=== PATIENT | female | born 1990 | race Caucasian/White ===

== ENCOUNTER 2020-03-03 08:40 | Inpatient (IN) | payer OTHER ==
[2020-03-03] MEDS ORDERED: CARBOPROST TROMETHAMINE 250 MCG/ML 1 ML AMP IM PRN (09:14)
[2020-03-03] MEDS ORDERED: METHYLERGONOVINE 0.2 MG/ML 1 ML AMP IM PRN (09:14)
[2020-03-03] MEDS ORDERED: TERBUTALINE 1 MG/ML VIAL SQ PRN (09:14)
[2020-03-03] MEDS ORDERED: LIDOCAINE 0.5% (PF) 5 MG/ML (50 ML SDV) SQ PRN (09:14)
[2020-03-03] MEDS ORDERED: OXYTOCIN 10 UNIT/ML 1 ML VIAL IM PRN (09:14)
[2020-03-03] MEDS ORDERED: AMPICILLIN 2,000 MG in SODIUM CHLORIDE 0.9% 100 ML IVPB STA (09:19)
[2020-03-03] MEDS ORDERED: OXYTOCIN 30 UNITS/500 ML NS 30 UNIT in SALINE 1 500ML.BAG IV SCH (09:30)
[2020-03-03] MEDS: LACTATED RINGERS 1,000 ML IV SCH ×2 (10:20→12:09)
[2020-03-03 10:51] LABS: Basophils % (A) 0 %; Eosinophils # (A) 0.1 k/uL (0-0.7); Eosinophils % (A) 1 %; HCT 37.7 % (34.0-46.0); HGB 12.9 gm/dL (11.4-16.0); Lymphocytes % (A) 21 %; MCH 31.5 pg (25.0-35.0); MCHC 34.3 g/dL (31.0-37.0); MCV 91.9 fL (80.0-100.0); Mean Platelet Volume 9.1; Monocytes # (A) 0.5 k/uL (0-1.0); Monocytes % (A) 5 %; Neutrophils % (A) 71 %; Platelet Count 238 k/uL (150-450); RBC 4.11 m/uL (3.80-5.40); RDW 12.3 % (11.5-15.5); WBC 9.8 k/uL (3.8-10.6)
[2020-03-03] MEDS ORDERED: SODIUM CHLORIDE 0.9% 100 ML BAG ONE (11:50)
[2020-03-03] MEDS ORDERED: fentaNYL (PF) 50 MCG/ML 5 ML AMP ONE (11:50)
[2020-03-03] MEDS ORDERED: ROPIVACAINE 5MG/ML 20ML VIAL ONE (11:50)
--- NOTE | 2020-03-03 12:10 | P.HPOB ---
History of Present Illness H&P Date: 03/03/20 Chief Complaint: Spontaneous rupture of membranes This is a 29-year-old female 1 para 0 with an estimated date of confinement of 03/22/2020, estimated gestational age of 37-2/7 weeks, who presented to labor and delivery with complaints of spontaneous rupture of membr anes at approximately 7 AM this morning. She denied feeling any regular contractions but did start to feel some on the way into the hospital. care has been with Dr. Vuong and has been uncomplicated up until this point. labs: Hemoglobin-11.8 Random glucose-91 Pap smear-within normal limits GC/chlamydia/Trichomonas-negative Hepatitis B surface antigen-negative RPR-nonreactive Rubella-immune Blood type-A+ Antibody screen-negative HIV-nonreactive Hemoglobin-12.2 Random glucose-82 Obstetrical ultrasound-normal anatomy One hour Glucola elevated at 144, 3 hour Glucola-within normal limits Group B streptococcus-initially was unknown however currently with review of records, it is negative Obstetrical history: Gynecologic history: No history of sexual transmitted diseases Review of Systems Constitutional: Denies chills, Denies fever Eyes: denies blurred vision, denies pain Ears, nose, mouth and throat: Denies headache, Denies sore throat Cardiovascular: Denies chest pain, Denies shortness of breath Respiratory: Denies cough Gastrointestinal: Reports abdominal pain (Irregular contractions) Genitourinary: Reports pelvic pain, Reports Musculoskeletal: Reports low back pain Integumentary: Denies pruritus, Denies rash Neurological: Denies numbness, Denies weakness Psychiatric: Denies anxiety, Denies depression Past Medical History Past Medical History: No Reported History History of Any Multi-Drug Resistant Organisms: None Reported Past Surgical History: No Surgical Hx Reported Past Anesthesia/Blood Transfusion Reactions: No Reported Reaction Past Psychological History: No Psychological Hx Reported Smoking Status: Never smoker Past Alcohol Use History: None Reported Past Drug Use History: None Reported - Past Family History Father Family Medical History: No Reported History Mother Family Medical History: Diabetes Mellitus Medications and Allergies Home Medications Medication Instructions Recorded Confirmed Type Pnv No.95/Ferrous Fum/Folic AC 1 tab PO DAILY 03/03/20 03/03/20 History [ Multivitamin Tablet] Allergies Allergy/AdvReac Type Severity Reaction Status Date / Time No Known Allergies Allergy Verified 03/03/20 09:03 Exam Osteopathic Statement: *. No significant issues noted on an osteopathic stru ctural exam other than those noted in the History and Physical/Consult. Vital Signs Temp Pulse Resp BP Pulse Ox 03/03/20 09:25 97.7 F 100 17 130/80 100 03/03/20 09:06 97.7 F 100 17 130/80 Intake and Output 03/02/20 03/03/20 03/03/20 22:59 06:59 14:59 Other: Weight 68.039 kg HEENT: Within normal limits Heart: Regular rate and rhythm Lungs: Clear to auscultation bilaterally Abdomen: Cervix: 2-1/2 cm/90%/-2 station. Positive clear fluid was noted. Positive amnisure was noted. heart tones: Category 1 Contractions: Every 2-5 minutes Extremities: Negative Homans Results Result Diagrams: 03/03/20 10:20 Assessment and Plan (1) 37 weeks gestation of Current Visit: Yes Status: Acute Code(s): Z3A.37 - 37 WEEKS GESTATION OF SNOMED Code(s): 85126380 (2) Spontaneous rupture of membranes Current Visit: Yes Status: Acute Code(s): LFZ3621 - SNOMED Code(s): 505206526 Plan: Admission for active labor. Expectant management. Epidural anesthesia if desired. One dose of antibiotic was given due to unknown group B streptococcus, however since we do know it is now negative, will discontinue.
[2020-03-03] MEDS ORDERED: AMPICILLIN 1,000 MG in SODIUM CHLORIDE 0.9% 50 ML IVPB SCH (13:20)
[2020-03-03] MEDS: OXYTOCIN 20 UNITS/1000 ML NS 1,000 ML IV SCH ×2 (17:29→18:17)
[2020-03-03] MEDS ORDERED: diphenhydrAMINE 50 MG/ML 1 ML VIAL IVP PRN ×2 (17:59)
[2020-03-03] MEDS ORDERED: SIMETHICONE 80 MG CHEWABLE PO PRN (17:59)
[2020-03-03] MEDS ORDERED: BENZOCAINE/MENTHOL SPRAY 1 GM/SPRAY AEROSOL TOPICAL PRN (17:59)
[2020-03-03] MEDS ORDERED: LANOLIN CREAM 5 GM TUBE TOPICAL PRN (17:59)
[2020-03-03] MEDS ORDERED: ACETAMINOPHEN TAB 325 MG TAB PO PRN (17:59)
[2020-03-03] MEDS ORDERED: diphenhydrAMINE 25 MG CAP PO PRN (17:59)
[2020-03-03] MEDS ORDERED: diphenhydrAMINE 50 MG CAP PO PRN (17:59)
[2020-03-03] MEDS ORDERED: ZOLPIDEM 5 MG TAB PO PRN (17:59)
[2020-03-03] MEDS ORDERED: HYDROCORTISONE 2.5% RECTAL CREAM 30 GM TUBE RECTAL PRN (17:59)
--- NOTE | 2020-03-03 18:00 | P.PROBDLV ---
Vaginal Delivery Note - . Vaginal Delivery Note: The patient progressed to complete dilation after spontaneous labor and spontaneous rupture membranes with clear fluid noted. She did receive epidural anesthesia. Once reaching complete, she began pushing. She pushed for approximately an hour and a half and brought 's head to a crown. With one further push, the 's head delivered across the perineum. Infant delivered in a straight OA position with shoulders in a transverse lie. Baby arrested tooted to a JUSTIN position and with one further push delivered the anterior or left shoulder underneath the pubic symphysis. With one remaining push, the remainder the infant easily delivered and was placed on mother's abdomen. Nose and mouth were bulb suctioned and cord was clamped and cut and was taken to warmer for evaluation. A viable female infant was noted with scores of 9 at 1 minute and 9 at 5 minutes and infant weight of 6 pounds 11.4 ounces. After some uterine massage, the placenta did gradually released along with some maternal pushing efforts. Placenta delivered intact with a three-vessel cord. Uterus initially did firm with uterine massage and oxytocin. However she Getting gushes of blood despite massaged and the uterine fundus. I did place a gloved hand into the intrauterine cavity to check for any membranes or pieces of placenta, however no additional pieces were palpated. The uterine cavity was palpated to be slightly ratty with irregular contour. After several attempts at removing blood clot and opening up the oxytocin, the uterus did finally firm. She also did have a second-degree left perineal laceration that was anesthetized with 1% lidocaine and then sutured with 3-0 Vicryl suture in the usual multilayer fashion. Estimated blood loss by quantitative blood loss was 820 mL's. We will continue oxytocin infusion and uterine massage and closely watch for any further blood loss. Both mother and are in stable condition.
[2020-03-03] MEDS ORDERED: INFLUENZA VACCINE (6 MOS+) 60 MCG/0.5 ML SYRINGE IM ONE (20:08)
[2020-03-03] MEDS: IBUPROFEN 600 MG TAB PO PRN (20:47)
[2020-03-03] MEDS: SENNOSIDES-DOCUSATE SODIUM 1 EACH TAB PO SCH (21:40)
[2020-03-04] MEDS: IBUPROFEN 600 MG TAB PO PRN ×2 (02:49→11:43)
--- NOTE | 2020-03-04 06:00 | P.PNOBGVD ---
Subjective - Subjective Patient reports: Reports appetite normal, Reports voiding normally, Reports pain well controlled, Reports ambulating normally : doing well Objective - Latest Vital Signs Latest vital signs: Vital Signs Temp Pulse Resp BP Pulse Ox 03/04/20 03:17 98.0 F 74 18 106/63 98 03/03/20 23:48 98.4 F 101 H 18 107/66 98 03/03/20 20:00 98.4 F 80 18 138/88 99 03/03/20 19:30 102 H 18 136/67 03/03/20 19:00 98 17 131/62 03/03/20 18:52 118 H 16 127/62 03/03/20 18:34 108 H 18 131/77 03/03/20 18:14 105 H 17 133/78 03/03/20 18:00 99.0 F 108 H 17 126/75 03/03/20 09:25 97.7 F 100 17 130/80 100 03/03/20 09:06 97.7 F 100 17 130/80 Intake and Output 03/03/20 03/03/20 03/04/20 14:59 22:59 06:59 Intake Total 100 600 Output Total 200 75 Balance -200 25 600 Intake: Intake, IV Titration 100 Amount Oxytocin 20 Units/1000 ml 100 Ns 1,000 ml @ Per Protocol IV .Q0M [facility] Rx#: [id number] Oral 600 Output: Urine 200 75 Other: # Voids 1 Weight 68.039 kg - Exam Lungs: bilateral: normal Chest: Normal S1, Normal S2 Extremities: Present: normal Abdomen: Present: normal appearance, soft Uterus: Present: normal, firm Assessment and Plan Assessment: day #1. Patient is resting without complaints and wishes to go home. Vital signs are stable and she is afebrile. Uterus is firm nontender and she's had normal lochia. My impression is a normal course. Check a CBC this morning that she had some excessive bleeding at the time of delivery but this is been very good sense. If the CBC is normal she continues to feel well discharge home later today. (1) Normal vaginal delivery Current Visit: Yes Status: Acute Code(s): O80 - ENCOUNTER FOR FULL-TERM UNCOMPLICATED DELIVERY SNOMED Code(s): 02796429
--- NOTE | 2020-03-04 06:03 | P.DS ---
Providers Date of admission: 03/03/20 08:57 Expected date of discharge: 03/04/20 Attending physician: oRd Vuong Primary care physician: Stated None - Discharge Diagnosis(es) (1) Normal vaginal delivery Current Visit: Yes Status: Acute Hospital Course: Please see dictated H&P for intimate details of this patient's admission. Brief summary this is a pleasant 29-year-old 1 para 0 female 37-2/7 weeks gestation admitted to labor and delivery in active labor and spontaneous rupture membranes. Patient was on have a vaginal delivery viable female . The's dictated delivery note per Dr. Mayen. Patient did have some excessive bleeding due to atony at the time of delivery this resolved and she is feeling fine. day 1 she wished to go home. Patient's felt be stable for discharge home follow up with me in 6 weeks. Procedures: Normal spontaneous vaginal delivery Patient Condition at Discharge: Good Plan - Discharge Summary New Discharge Prescriptions: New Ibuprofen [Motrin] 600 mg PO Q6HR PRN #30 tab PRN Reason: Mild Pain Or Fever >= 100.5 No Action Pnv No.95/Ferrous Fum/Folic AC [ Multivitamin Tablet] 1 tab PO DAILY Discharge Medication List Pnv No.95/Ferrous Fum/Folic AC [ Multivitamin Tablet] 1 tab PO DAILY 03/03/20 [History] Ibuprofen [Motrin] 600 mg PO Q6HR PRN #30 tab 03/04/20 [Rx] Follow up Appointment(s)/Referral(s): Rod Vuong MD [STAFF PHYSICIAN] - 6 Weeks Patient Instructions/Handouts: Vaginal Delivery (DC) Activity/Diet/Wound Care/Special Instructions: No intercourse or anything per vagina for 6 weeks. Please call if any fever, chills, excessive vaginal bleeding, and/or abdominal pain. Discharge Disposition: HOME SELF-CARE
[2020-03-04 08:14] LABS: Basophils % (A) 0 %; Eosinophils % (A) 0 %; HCT 27.9 % (34.0-46.0); Lymphocytes # (A) 2.1 k/uL (1.0-4.8); Lymphocytes % (A) 13 %; MCH 31.8 pg (25.0-35.0); MCHC 34.4 g/dL (31.0-37.0); MCV 92.5 fL (80.0-100.0); Mean Platelet Volume 9.4; Monocytes # (A) 0.6 k/uL (0-1.0); Monocytes % (A) 4 %; Neutrophils # (A) 12.9 k/uL (1.3-7.7); Neutrophils % (A) 81 %; Platelet Count 192 k/uL (150-450); RBC 3.02 m/uL (3.80-5.40); RDW 12.6 % (11.5-15.5); WBC 15.8 k/uL (3.8-10.6)
[2020-03-04 08:20] LABS: HGB 9.6 gm/dL (11.4-16.0)
[2020-03-04] MEDS: SENNOSIDES-DOCUSATE SODIUM 1 EACH TAB PO SCH (08:52)
[2020-03-04 08:54] VITALS: RESP 16
[2020-03-04] MEDS ORDERED: IRON POLYSACCHARIDES COMPLEX 150 MG CAP PO SCH (09:00)
[2020-03-04] MEDS ORDERED: PRENATAL VIT-IRON-FOLIC ACID 1 EACH CAP PO SCH (09:00)
[2020-03-04 16:42] VITALS: BP 118/59; PULSE 84; TEMP 98.4
== END 2020-03-04 18:10 | disposition home or self-care (01) | DRG 807 ==
LOC: FBPOP 08:40 → 4FBP 08:57
PROVIDERS: ADMIT Obstetrics & Gynecology; ATTEND Obstetrics & Gynecology
PROC: 00HU33Z Insertion of Infusion Device into Spinal Canal, Percutaneous Approach (ICD-10-PCS; principal; 2020-03-03)
PROC: 3E0R3BZ Introduction of Anesthetic Agent into Spinal Canal, Percutaneous Approach (ICD-10-PCS; principal; 2020-03-03)
PROC: 0KQM0ZZ Repair Perineum Muscle, Open Approach (ICD-10-PCS; principal; 2020-03-03)
PROC: 10E0XZZ Delivery of Products of Conception, External Approach (ICD-10-PCS; principal; 2020-03-03)
DX: O70.1 Second degree perineal laceration during delivery (principal); Z37.0 Single live birth; Z3A.37 37 weeks gestation of pregnancy; O32.2XX0 Maternal care for transverse and oblique lie, not applicable or unspecified; Z83.3 Family history of diabetes mellitus
CPT/HCPCS: 85025; 86850; 86900; 86901; 90686

== ENCOUNTER → 2021-10-15 | Outpatient (CLI) | payer MEDICAID | END | disposition home or self-care (01) | LOC: LABWHC1 15:32 | PROVIDERS: ATTEND Obstetrics & Gynecology | DX: O20.0 Threatened abortion (principal); Z3A.00 Weeks of gestation of pregnancy not specified | CPT/HCPCS: 36415; 84702 ==

== ENCOUNTER → 2021-10-17 | Outpatient (CLI) | payer MEDICAID | END | disposition home or self-care (01) | LOC: LABWHC1 09:53 | PROVIDERS: ATTEND Obstetrics & Gynecology | DX: O20.0 Threatened abortion (principal); Z3A.00 Weeks of gestation of pregnancy not specified | CPT/HCPCS: 36415; 84702 ==

== ENCOUNTER → 2021-10-20 | Outpatient (CLI) | payer MEDICAID ==
--- NOTE | 2021-10-20 13:16 | US ---
EXAMINATION TYPE: Transabdominal DATE OF EXAM: 10/20/2021 1:01 PM COMPARISON: NONE CLINICAL HISTORY: O46.91 BLEEDING/SPOTTING. Patient states she has been bleeding x [address] [facility] LMP was end of August putting her around 8 weeks. HCG was abnormal. EXAM PERFORMED: Transvaginal (TV) and Transabdominal (TA) EXAM MEASUREMENTS: GESTATIONAL AGE / DATING Physician Established: Not yet established Dates by LMP: LMP Dates by First Scan: No previous this is first scan Dates by Current Scan for: Gestational sac only seen MATERNAL ANATOMY Uterus: 7.5 x 3.8 x 3.5 cm Right Ovary: 3.4 x 1.7 x 1.4 cm. Hypoechoic area seen measuring 1.6 x 1.0 x 1.5 cm. Left Ovary: Not visualized Post CDS / Adnexa: Small amount of fluid seen in post. cul de sac Presence of free fluid: Yes in posterior cul de sac. Presence of corpus luteal cyst: Possible in right ovary Presence of subchorionic bleed: Possible bleed adjacent to gestation sac measuring 0.8 x 0.6 x 0.3 cm . GESTATION / SURVEY CRL: Not visualized MSD: 0.53 cm (5 weeks/0 days) Yolk Sac (normal less than 6mm): Not vis. Heart Rate: Not vis. IUP: No IUP seen at this time Nuchal Translucency 10-14wks (normal less than 3mm): Not vis. Date of LMP: End of August Beta HcG (if available): N/A No IUP visualized. Only a gestational sac was visualized measuring 5 weeks 0 days. IMPRESSION: No evidence for intrauterine at this time. The findings could reflect normal early IUP gray deana additional possibilities include blighted ovum, missed spontaneous as well as ectopic pr egnancy. Correlate clinically and with serial beta hCG and/or ultrasound.
== END | disposition home or self-care (01) ==
LOC: RADUSWWP 12:12
PROVIDERS: ATTEND Obstetrics & Gynecology
DX: O46.91 Antepartum hemorrhage, unspecified, first trimester (principal)
CPT/HCPCS: 76801; 76817

== ENCOUNTER → 2021-10-27 | Outpatient (CLI) | payer MEDICAID ==
--- NOTE | 2021-10-27 13:00 | US ---
EXAMINATION TYPE: Transabdominal DATE OF EXAM: 10/27/2021 12:40 PM COMPARISON: NONE CLINICAL HISTORY: O02.0 BLIGHTED OVAUM. follow up EXAM PERFORMED: Transabdominal (TA) EXAM MEASUREMENTS: GESTATIONAL AGE / DATING Physician Established: Not yet established Dates by LMP: LMP unknown Dates by First Scan: only GS visualized Dates by Current Scan for: (5 weeks/3 days) - GS MATERNAL ANATOMY Uterus: 7.9 x 3.3 x 4.8cm Right Ovary: 3.5 x 1.4 x 2.0cm Left Ovary: 3.6 x 1.4 x 2.2cm Post CDS / Adnexa: small amount of free fluid posterior cul-de-sac Presence of free fluid: yes Presence of corpus luteal cyst: yes, complex area right ovary = 1.4 x 2.0 x 1.2cm GESTATION / SURVEY MSD: 0.8cm (5 weeks/3 days) Yolk Sac (normal less than 6mm): not seen no evidence of pole at this time Date of LMP: end of August Beta HcG (if available): 1182 7-15-22 The mean sac diameter growth rate may be somewhat slow. Previous gestational age based on mean sac di ameter was 5 weeks 0 days. 7 days following the initial exam and repeat exam is performed today which only shows a growth of 5 weeks 3 days gestation based on the mean sac diameter. IMPRESSION: 1. Intrauterine gestational sac measuring 0.8 cm. This would be compatible with a 5 week 3 day gestat ion. Growth may be lagging. Yolk sac is not identified. pole was not identified. No cardiac ac tivity is evident which could be related to early . 2. Complex small right ovarian cyst. 3. Correlation with beta hCG and continued follow-up is recommended. This may be an early . Blighted ovum and ectopic remains within the differential.
== END | disposition home or self-care (01) ==
LOC: RADUSWWP 12:18
PROVIDERS: ATTEND Obstetrics & Gynecology
DX: O02.0 Blighted ovum and nonhydatidiform mole (principal); O34.81 Maternal care for other abnormalities of pelvic organs, first trimester; Z3A.01 Less than 8 weeks gestation of pregnancy
CPT/HCPCS: 76801; 84702

== ENCOUNTER → 2021-10-29 | Outpatient (CLI) | payer MEDICAID | END | disposition home or self-care (01) | LOC: LABPAT 16:02 | PROVIDERS: ATTEND Obstetrics & Gynecology | DX: Z53.9 Procedure and treatment not carried out, unspecified reason (principal) ==

== ENCOUNTER 2021-10-31 05:45 | Day surgery (SDC) | payer MEDICAID ==
[2021-10-29 16:57] LABS: Basophils % (A) 1 %; Eosinophils # (A) 0.1 k/uL (0-0.7); Eosinophils % (A) 1 %; HCT 38.8 % (34.0-46.0); HGB 12.7 gm/dL (11.4-16.0); Lymphocytes # (A) 1.9 k/uL (1.0-4.8); Lymphocytes % (A) 31 %; MCH 30.1 pg (25.0-35.0); MCHC 32.6 g/dL (31.0-37.0); MCV 92.2 fL (80.0-100.0); Mean Platelet Volume 8.1; Monocytes # (A) 0.4 k/uL (0-1.0); Monocytes % (A) 7 %; Neutrophils # (A) 3.7 k/uL (1.3-7.7); Neutrophils % (A) 59 %; Platelet Count 259 k/uL (150-450); RBC 4.21 m/uL (3.80-5.40); RDW 11.8 % (11.5-15.5); WBC 6.2 k/uL (3.8-10.6)
--- NOTE | 2021-10-30 07:03 | P.HPOB ---
History of Present Illness H&P Date: 10/30/21 Chief Complaint: Missed This patient is a pleasant 31-year-old 2 para 1 female estimated gestational age 8-1/2 weeks by last menstrual period who presented to my office with complaints of vaginal bleeding. Patient had a beta hCG that was oh 1182 and an ultrasound that showed a 5 week intrauterine sac without pole or yolk sac. This was on October 15. Patient had continued bleeding had a repeat beta hCG 2 days later that did not change. Repeat ultrasound a week later showed a persistent sac but her hCG john to 3778 which is inappropriate. Patient understands this is most likely a missed however I cannot 100% rule out ectopic . She subsequently stopped bleeding. Patient is not having any pain. I discussed options with the patient including continued expected management versus suction D&C to get a tissue diagnoses. Patient wishes to proceed with D&C at this time. Review of Systems Genitourinary: Reports abnormal vaginal bleeding, Reports Past Medical History Past Medical History: No Reported History History of Any Multi-Drug Resistant Organisms: None Reported Past Surgical History: No Surgical Hx Reported Past Anesthesia/Blood Transfusion Reactions: No Reported Reaction Past Psychological History: No Psychological Hx Reported Smoking Status: Never smoker Past Alcohol Use History: None Reported Past Drug Use History: None Reported - Past Family History Father Family Medical History: No Reported History Mother Family Medical History: Diabetes Mellitus Medications and Allergies Home Medications Medication Instructions Recorded Confirmed Type Pnv No.95/Ferrous Fum/Folic AC 1 tab PO DAILY 03/03/20 03/03/20 History [ Multivitamin Tablet] Ibuprofen [Motrin] 600 mg PO Q6HR PRN #30 tab 03/04/20 Rx Allergies Allergy/AdvReac Type Severity Reaction Status Date / Time No Known Allergies Allergy Verified 03/03/20 09:03 Exam - OBG Physical Exam Abdomen: bowel sounds normal, no diffuse tenderness, no bruit present, no guarding noted, no hepatomegaly, no splenomegaly, no mass Vulva: both: normal Cervix: no lesion, no discharge Uterus: normal size, normal contour Results Ultrasound and beta hCG as above. Patient's blood type is Rh+. Result Diagrams: 10/29/21 16:23 Assessment and Plan Assessment: This is a pleasant 31-year-old 2 para 1 female with suspected missed at approximately 5 weeks. Plan is suction D&C for treatment and tissue diagnoses. Patient understands this surgery and risks and risks of infection, bleeding, possible uterine perforation. All the patient's questions are answered and a written consent is obtained. (1) Missed Status: Acute Code(s): O02.1 - MISSED SNOMED Code(s): 64884821
[~2021-10-31 05:45] MED LIST: Pre Op ABX Message 1 EACH MISC MISCELLANE ONE
[2021-10-31] MEDS ORDERED: LACTATED RINGERS 1,000 ML IV SCH (06:01)
[2021-10-31] MEDS ORDERED: ONDANSETRON 4 MG/2 ML VIAL IVP ONE (06:01)
[2021-10-31] MEDS ORDERED: MIDAZOLAM 2 MG/2 ML VIAL IV PRN (06:01)
[2021-10-31] MEDS ORDERED: LIDOCAINE 1% (10MG/ML) FOR IV START INTRADERMA PRN (06:01)
[2021-10-31] MEDS ORDERED: DEXAMETHASONE SOD PHOSPHATE 4 MG/ML 1 ML VIAL IV ONE (06:01)
[2021-10-31 06:12] VITALS: TEMP 97.2
[2021-10-31] MEDS ORDERED: LACTATED RINGERS 1,000 ML IV ONE (06:13)
[2021-10-31] MEDS ORDERED: fentaNYL (PF) 50 MCG/ML 2 ML AMP ONE (06:56)
[2021-10-31] MEDS ORDERED: LIDOCAINE 2% INJ 20 MG/ML (2 ML VIAL) ONE (06:56)
[2021-10-31] MEDS ORDERED: PROPOFOL 10 MG/ML 20 ML VIAL IV ONE (06:56)
[2021-10-31] MEDS ORDERED: MIDAZOLAM 2 MG/2 ML VIAL ONE (06:56)
[2021-10-31] MEDS ORDERED: KETOROLAC 15 MG/ML 1 ML VIAL ONE (06:56)
[2021-10-31] MEDS ORDERED: HYDROmorphone 0.5 MG/0.5 ML SYRINGE IVP PRN (07:00)
[2021-10-31 07:30] VITALS: RESP 16
--- NOTE | 2021-10-31 07:31 | P.OP ---
Date of Procedure: 10/31/21 Preoperative Diagnosis: Missed 5 weeks Postoperative Diagnosis: Same, rule out ectopic Procedure(s) Performed: Suction D&C Anesthesia: MAC Surgeon: Rod Vuong Estimated Blood Loss (ml): 25 Urine output (ml): 150 Pathology: other (Uterine curettings) Condition: stable Disposition: PACU Indications for Procedure: Please see dictated H&P for intimate details of this patient's admission. Brief summary is a pleasant 31-year-old 2 para 1 female that I have been following for first trimester bleeding. Patient has 2 ultrasounds showing an empty 5 week sac in the uterus without a pole or yolk sac. HCG initially was 1180 however it increased after a week to over 3000. Patient's bleeding had stopped. The sac was persistent. Patient is having no pain. I counseled the patient it is best to proceed with suction D&C for tissue diagnosis. Patient understands this procedure and risks and risks of infection, bleeding, possible uterine perforation. All the patient's questions are answered written consent is obtained. Operative Findings: Scant tissue noted on D&C Description of Procedure: This patient is taken to the operating room where she is laid in the supine position. She subsequent undergoes general mask anesthesia without incident. With an adequate level of anesthesia she's placed in dorsal lithotomy position. She has a vaginal perineal prep and drape. Examination under anesthesia shows a mid position uterus. Bladder is drained for about 150 mL of clear urine. Weighted speculum was placed in the posterior vagina. The anterior lip of the cervix was grabbed with an Allis clamp. Cervix is then dilated easily to allow a 8 curved suction curette into the uterine cavity suction is applied and a scant amount of blood and tissue is removed. A gentle but thorough 4 quadrant curettage is done and again very little tissue was noted. This point the procedure is ended. The Allis clamp and weighted speculum were removed. Patient is awakened from anesthesia and taken recovery room in satisfactory condition. All counts are correct 3. There are no complications. Of note, due to the lack of tissue on the D&C specimen I'm going to get a stat follow-up beta hCG and hepatic function panel this morning, in the event there is no villi on the pathology specimen then I will proceed with methotrexate treatment most likely next week due to suspected ectopic. I did discuss this with the and informed him to call this weekend if the patient were to have any significant pain.
[2021-10-31 08:09] VITALS: BP 108/64; PULSE 79
[2021-10-31 08:10] LABS: Albumin 3.8 g/dL (3.5-5.0); Bilirubin, Delta 0.1 mg/dL (0.0-0.2); Bilirubin,Unconjugated 0.3 mg/dL (0.0-1.1); Total Bilirubin 0.4 mg/dL (0.2-1.3); Total Protein 6.4 g/dL (6.3-8.2)
--- NOTE | 2021-10-31 09:01 | P.PN ---
Progress Note - Text Progress Note Date: 10/29/21 I did not see any significant tissue at the time of D&C and BHCG this morning increased from Wednesday (3700 --> 4200), therefore my concern for ectopic is high. Chayito is having no pain, but I advised to proceed with attempt at medical treatment now. I explained Methotrexate benefits/risks and wishes to proceed. Based on BSA (1.6) will give dose 80mg IM now.
[2021-10-31] MEDS: METHOTREXATE SODIUM (PF) 25 MG/ML 2 ML VIAL IM STA ×2 (09:50→10:18)
== END 2021-10-31 10:19 | disposition home or self-care (01) ==
LOC: OR 05:45
PROVIDERS: ATTEND Obstetrics & Gynecology
DX: O02.1 Missed abortion (principal); Z83.3 Family history of diabetes mellitus
CPT/HCPCS: 86900; 86901; 88305; 80076; 85025; 86850; 84702; 59820; J2250; J1100; J9260; J2405; J3010; J1885; J2704; J2001

== ENCOUNTER → 2021-11-07 | Outpatient (CLI) | payer MEDICAID | END | disposition home or self-care (01) | LOC: LABWHC1 13:49 | PROVIDERS: ATTEND Obstetrics & Gynecology | DX: O02.81 Inappropriate change in quantitative human chorionic gonadotropin (hCG) in early pregnancy (principal); Z3A.00 Weeks of gestation of pregnancy not specified | CPT/HCPCS: 36415; 84702 ==

== ENCOUNTER → 2022-02-17 | Outpatient (CLI) | payer MEDICAID ==
--- NOTE | 2022-02-17 19:28 | US ---
EXAMINATION TYPE: Transabdominal DATE OF EXAM: 02/17/2022 4:28 PM COMPARISON: NONE CLINICAL HISTORY: Z36.89 ENCOUNTER FOR OTHER SPECIFIED SCR. EXAM PERFORMED: Transabdominal (TA) EXAM MEASUREMENTS: GESTATIONAL AGE / DATING Physician Established: Not yet established Dates by LMP: (9 weeks/6 days) EDC: 09-16-21 Dates by First Scan: No previous this is first scan Dates by Current Scan for: (10 weeks/4 days) EDC: 09-11-21 MATERNAL ANATOMY Uterus: 12.0 x 6.0 x 6.9cm Right Ovary: 1.8 x 1.2 x 1.6cm Left Ovary: 1.3 x 1.3 x 2.0cm Post CDS / Adnexa: wnl Presence of free fluid: no GESTATION / SURVEY CRL: 3.6cm (10 weeks/4 days) Yolk Sac (normal less than 6mm): 4mm Heart Rate: 175 bpm Rhythm: Normal IUP: Viable IUP Nuchal Translucency 10-14wks (normal less than 3mm): 1mm Age Appropriate Anatomy Cord Insertion: Visualized Limbs: Visualized Calvarium: Visualized Date of LMP: 12-10-21 Beta HcG (if available): Not available at this time IMPRESSION: Intrauterine gestation with ultrasound age of 10 weeks 4 days which is discordant with dates by last menstrual period of 9 weeks 6 days.
[2022-02-17 22:42] LABS: HCT 36.3 % (37.2-46.3); HGB 12.4 g/dL (12.0-15.0); MCHC 34.2 g/dL (32.0-37.0); MCV 90.8 fL (80.0-97.0); Mean Platelet Volume 10.4 fL (9.5-12.2); NRBC Per 100 WBC 0 /100 WBCS (0.0-0.0); Platelet Count 280 X 10*3/uL (140-440); RDW 11.7 % (11.5-14.5); WBC 9.84 X 10*3/uL (4.50-10.00)
[2022-02-17 22:57] LABS: African American GFR (CKD) 150.5 (60.0-200.0); Non-African American GFR(CKD) 129.9 (60.0-200.0)
[2022-02-17 23:08] LABS: Hepatitis B Surface Antigen Nonreactive (Nonreactive); Hepatitis C IgG Antibody Nonreactive (Nonreactive)
== END | disposition home or self-care (01) ==
LOC: RADUSWWP 15:49
PROVIDERS: ATTEND Obstetrics & Gynecology
DX: Z34.81 Encounter for supervision of other normal pregnancy, first trimester (principal); Z3A.10 10 weeks gestation of pregnancy
CPT/HCPCS: 76801; 82565; 82947; 85027; 86762; 86780; 86803; 86900; 86901; 87340; 87390

== ENCOUNTER → 2022-04-21 | Outpatient (CLI) | payer MEDICAID ==
--- NOTE | 2022-04-21 21:45 | US ---
EXAMINATION TYPE: US OB anatomy transabd DATE OF EXAM: 04/21/2022 COMPARISON: US 2021 HISTORY: O36.62X0 MATERNAL CARE FOR EXCESS GROWTH Hx 1 miscarriage. . TECHNIQUE: Transabdominal (TA) EXAM MEASUREMENTS: GESTATIONAL AGE / DATING Physician Established: (18 weeks/6 days) EDC: 09/16/2022 Dates by LMP: (18 weeks/6 days) EDC: 09/16/2022 Dates by First Scan: (19 weeks/4 days) EDC: 09/11/2022 Dates by Current Scan for: (19 weeks/6 days) EDC: 09/09/2022 SURVEY IUP: Single PLACENTA: Anterior PREVIA: Appears to be low lying measuring 1.8 cm from the internal os. CARLOS: 14.5 cm Normal CERVICAL LENGTH (transabdominal: norm > 3.0cm): 3.4 cm BIOMETRY PRESENTATION: Variable LIE: Transverse lie with head maternal Right BPD: 4.60 cm 20 weeks / 0 days HC: 16.9 cm 19 weeks / 4 days AC: 15.09 cm 20 weeks / 3 days FL: 2.94 cm 19 weeks / 1 day ESTIMATED WEIGHT IN GRAMS: 309 grams ESTIMATED WEIGHT IN LBS/OZ: 0 lbs. 11 oz. WEIGHT PERCENTAGE BASED ON ESTABLISHED DATE: 91 % HC/AC: 1.12 Normal FL/AC: 19% HEART RATE: 132 bpm RHYTHM: Normal ANATOMY SEEN (within normal limits): * Lateral Vent (< 1 cm) 0.7 cm * Cisterna Magna (< 1.1 cm) 0.54 cm * Nuchal Fold (< 0.6 cm) 0.27 cm * Cerebellum (varies with age) 1.99 cm Choroid Plexus (bilateral) Midline Falx Cavus Septi Pellucidi Four Chamber Heart Outflow tracts: LVOT/RVOT Stomach Situs Nose / Lips Diaphragm Kidneys (bilateral) Bladder Cord Insert Three Vessel Cord Longitudinal Spine Transverse Spine Arms (bilateral) Legs (bilateral) IMPRESSION: 1. Single intrauterine gestation with ultrasound age 19 weeks 6 days. 2. There is a low-lying placenta approximately 1.8 cm from the internal cervical os.
== END | disposition home or self-care (01) ==
LOC: RADUSWWP 13:40
PROVIDERS: ATTEND Obstetrics & Gynecology
DX: O36.62X0 Maternal care for excessive fetal growth, second trimester, not applicable or unspecified (principal); Z3A.19 19 weeks gestation of pregnancy
CPT/HCPCS: 76811

== ENCOUNTER → 2022-06-24 | Outpatient (CLI) | payer MEDICAID ==
--- NOTE | 2022-06-24 15:24 | US ---
EXAMINATION TYPE: US OB >= 14 wk fetus DATE OF EXAM: 06/24/2022 COMPARISON: None CLINICAL HISTORY: O44.40 LOW LYING PLACENTALow lying placenta TECHNIQUE: GESTATIONAL AGE / DATING Physician Established: (28 weeks/0 days) EDC: 09/16/2022 Dates by LMP: (28 weeks/0 days) EDC: 09/16/2022 Dates by First Scan: (28 weeks/0 days) EDC: 09/16/2022 Dates by Current Scan: (30 weeks/0 days) EDC: 09/02/2022 Beta HCG (if available): Not available at this time SURVEY IUP: Single PLACENTA: Anterior PREVIA: No Previa CARLOS: 13.20 cm Normal CERVICAL LENGTH (transabdominal: norm > 3.0cm): 3.7 cm bladder was over distended not funneling chec ked with empty bladder did not document with picture. (Supplemental transvaginal imaging performed to verify cervical length.) BIOMETRY PRESENTATION: Vertex LIE: Longitudinal BPD: 7.5 cm 30 weeks / 1 days HC: 27.5 cm 30 weeks /1 days AC: 25.2 cm 29 weeks / 3 days FL: 5.7 cm 30 weeks / 0 days ESTIMATED WEIGHT IN GRAMS:1435 grams ESTIMATED WEIGHT IN LBS/OZ: 3 lbs. 3 oz. WEIGHT PERCENTAGE BASED ON ESTABLISHED DATES: 93% HC/AC: 1.09 Normal FL/AC: 23% Normal HEART RATE: 158 bpm RHYTHM: Normal IMPRESSION: Single viable intrauterine . Estimated weight is within the 93rd percentile.
== END | disposition home or self-care (01) ==
LOC: RADUSWWP 14:12
PROVIDERS: ATTEND Obstetrics & Gynecology
DX: O44.43 Low lying placenta NOS or without hemorrhage, third trimester (principal); Z3A.30 30 weeks gestation of pregnancy
CPT/HCPCS: 76805

== ENCOUNTER → 2022-08-27 | Outpatient (CLI) | payer MEDICAID ==
--- NOTE | 2022-08-27 09:29 | US ---
EXAMINATION TYPE: US OB >= 14 wk fetus DATE OF EXAM: 08/27/2022 COMPARISON: US 08/10/22 CLINICAL INDICATION: Female, 31 years old with history of O36.63X0 MATERNAL CARE FOR EXCESS ANKIT WTH, TH; Large for dates. TECHNIQUE: Transvaginal (TV) and Transabdominal (TA) GESTATIONAL AGE / DATING Physician Established: (37 weeks/1 day) EDC: 09/16/2022 Dates by LMP: (37 weeks/1 days) EDC: 09/16/2022 Dates by First Scan: (37 weeks/6 days) EDC: 09/11/2022 Dates by Current Scan: (39 weeks/4 days) (3 days less growth than expected compared to 08/10/2022) EDC: 08/30/2022 SURVEY IUP: Single PLACENTA: Anterior. Appears heterogeneous. PREVIA: No Previa CARLOS: 13.1 cm Normal CERVICAL LENGTH (transabdominal: norm > 3.0cm): Unable to visualize CERVICAL LENGTH (transvaginal: norm> 2.5cm): 2.87 cm. Approximately 5 mm of funneling is suggested. (Supplemental transvaginal imaging performed to verify cervical length.) BIOMETRY PRESENTATION: Vertex BPD: 9.8 cm 40 weeks / 2 days HC: 35.0 cm 40 weeks / 6 days AC: 35.6 cm 39 weeks / 4 days FL: 7.3 cm 37 weeks / 3 days ESTIMATED WEIGHT IN GRAMS: 3740 grams ESTIMATED WEIGHT IN LBS/OZ: 8 lbs. 4 oz. WEIGHT PERCENTAGE BASED ON ESTABLISHED DATES: 96% (versus 95th percentile 08/10/2022) HC/AC: 0.98 Normal FL/AC: 21% Normal HEART RATE: 138 bpm RHYTHM: Normal IMPRESSION: 1. Single live intrauterine with estimated gestational age of 37 weeks 1 day by LMP. Curren t ultrasound biometry is larger at 39 weeks 4 days (with 3 days less growth than expected compared to 08/10/2022). EFW remains large at the 96th percentile versus 95th percentile, previously. 2. Slightly decreased cervical length at 2.9 cm. Approximately 5 mm of funneling seems to be present.
--- NOTE | 2022-08-27 11:10 | US ---
EXAMINATION TYPE: US OB TV Cervical Measurement DATE OF EXAM: 08/27/2022 COMPARISON: NONE REASON FOR EXAM: Per Ordering Physician?this transvaginal scan is to assess the CERVICAL LENGTH for i ncompetence or funneling. GESTATIONAL AGE / DATING Physician Established: (37 weeks/1 days) EDC: 09/16/22 Dates by Current Scan: (39weeks/ 4 days) EDC: 08/30/2022 MATERNAL/ SURVEY CERVICAL LENGTH: 2.87 cm Ultrasound evidence of shortened cervix? Borderline Ultrasound evidence of funneling? See below PRESENTATION: Vertex HEART RATE: 138 bpm IMPRESSION: Slightly decreased cervical length of 2.9 cm. Approximately 5 mm of funneling seems to be present on the provided images.
== END | disposition home or self-care (01) ==
LOC: RADUSWWP 08:10
PROVIDERS: ATTEND Obstetrics & Gynecology
DX: O36.63X0 Maternal care for excessive fetal growth, third trimester, not applicable or unspecified (principal); Z3A.37 37 weeks gestation of pregnancy
CPT/HCPCS: 76805; 76817

== ENCOUNTER 2022-09-09 06:40 | Inpatient (IN) | payer MEDICAID ==
--- NOTE | 2022-09-08 08:47 | P.HPOB ---
History of Present Illness H&P Date: 09/08/22 Chief Complaint: Primary cesearan section for macrosomia This patient is a pleasant 31 yr EDC 09/16/2022 estimated gestational age 39 0/7 weeks who presents to L&D for elective primary section due to suspected macrosomia. Patient had an ultrasoun approximately 2 weeks ago that showed EFW 8#4oz (>95%). Her previously delivery was a 6#11oz baby that she pushed for 1.5 hrs and had retained tissue. I discussed the EFW with the patient and options for delivery and we have decided to proceed with primary section this . has otherwise been uncomplicated. Review of Systems Genitourinary: Reports Menstruation: Reports amenorrhea Past Medical History Past Medical History: No Reported History Additional Past Medical History / Comment(s): Previous 6#11oz girl; SAB with D&C History of Any Multi-Drug Resistant Organisms: None Reported Additional Past Surgical History / Comment(s): D&C Past Anesthesia/Blood Transfusion Reactions: No Reported Reaction Past Psychological History: No Psychological Hx Reported Smoking Status: Never smoker Past Alcohol Use History: None Reported Past Drug Use History: None Reported - Past Family History Father Family Medical History: No Reported History Mother Family Medical History: Diabetes Mellitus Medications and Allergies Allergies Allergy/AdvReac Type Severity Reaction Status Date / Time No Known Allergies Allergy Verified 10/30/21 08:22 Exam - OBG Physical Exam Abdomen: bowel sounds normal, no diffuse tenderness, no bruit present, no guarding noted, no hepatomegaly, no splenomegaly, no mass Vulva: both: normal Vagina: normal moisture, no discharge Cervix: no lesion, no discharge Uterus: enlarged (Fundal height is 41 cm) Results labs: A positive, Rubella Immune, RPR-HepB/C-HIV, Glucola 137 with normal 3hr GTT, GBS negative, Ultrasound about 2 weeks showed EFW 8#4% (>95%) Assessment and Plan Assessment: This is a pleasant 31 yr old female 39 0/7 weeks who presents for primary C/S due to suspected macrosomia. I did have a long discussion with Chayito about her ultrasound findings, the possible inaccuracy of EFW, and also about her last delivery. Since this baby is estimated to be about 2# larger than her last delivery and that delivery was difficult, we have decided to proceed with section for delivery this time. She and I discussed the surgery and risks: infection, bleeding, possible injury to bowel/bladder/vessels/ and/or other organs. All of her questions were answered and a written consent obtained. (1) 39 weeks gestation of Status: Acute Code(s): Z3A.39 - 39 WEEKS GESTATION OF SNOMED Code(s): 08689004 (2) macrosomia Status: Acute Code(s): ZVL2571 - SNOMED Code(s): 93141499
[2022-09-08 14:42] VITALS: BMI 29.4
[2022-09-09] MEDS ORDERED: OXYTOCIN 10 UNIT/ML 1 ML VIAL IM PRN (06:55)
[2022-09-09] MEDS ORDERED: miSOPROStoL 200 MCG TAB PO PRN (06:55)
[2022-09-09] MEDS ORDERED: TRANEXAMIC ACID IN NACL,ISO-OS 1,000 MG in EMPTY BAG 1 BAG IV PRN (06:55)
[2022-09-09] MEDS ORDERED: CARBOPROST TROMETHAMINE 250 MCG/ML 1 ML AMP IM PRN (06:55)
[2022-09-09] MEDS ORDERED: LACTATED RINGERS 1,000 ML IV ONE (06:55)
[2022-09-09] MEDS ORDERED: METHYLERGONOVINE 0.2 MG/ML 1 ML AMP IM PRN (06:55)
[2022-09-09] MEDS ORDERED: CITRIC ACID-SODIUM CITRATE 15 ML CUP PO ONE (06:55)
[2022-09-09] MEDS ORDERED: LACTATED RINGERS 1,000 ML IV SCH (06:55)
[2022-09-09 07:28] LABS: Basophils % (A) 0 %; Eosinophils # (A) 0.1 k/uL (0-0.7); Eosinophils % (A) 2 %; HCT 33.7 % (34.0-46.0); HGB 11.5 gm/dL (11.4-16.0); Lymphocytes # (A) 1.7 k/uL (1.0-4.8); Lymphocytes % (A) 20 %; MCH 30.8 pg (25.0-35.0); MCHC 34.1 g/dL (31.0-37.0); MCV 90.3 fL (80.0-100.0); Mean Platelet Volume 9.1; Monocytes # (A) 0.5 k/uL (0-1.0); Monocytes % (A) 6 %; Neutrophils # (A) 5.8 k/uL (1.3-7.7); Neutrophils % (A) 70 %; Platelet Count 222 k/uL (150-450); RBC 3.73 m/uL (3.80-5.40); RDW 12.9 % (11.5-15.5); WBC 8.3 k/uL (3.8-10.6)
[2022-09-09] MEDS ORDERED: ePHEDrine 50 MG/ML 1 ML VIAL ONE (08:19)
[2022-09-09] MEDS ORDERED: KETOROLAC 15 MG/ML 1 ML VIAL ONE (08:19)
[2022-09-09] MEDS ORDERED: MORPHINE SULFATE (PF) 0.3 MG/0.3 ML SYR ONE (08:19)
[2022-09-09] MEDS ORDERED: OXYTOCIN 30 UNITS/500 ML NS BAG IV ONE (08:19)
--- NOTE | 2022-09-09 09:09 | P.OP ---
Date of Procedure: 09/09/22 Preoperative Diagnosis: #1: 39-0/7 week intrauterine . 2: macrosomia Postoperative Diagnosis: Same Procedure(s) Performed: Primary low transverse section Anesthesia: spinal Surgeon: Rod Vuong Waredresser #1: Deepa Mayen Estimated Blood Loss (ml): 600 Pathology: none sent Condition: stable Disposition: floor Indications for Procedure: Please see dictated H&P for intimate details of this patient's admission. Brief summary is a pleasant 31-year-old 3 para 1 female 39-0/7 weeks gestation admitted to labor and delivery for elective section secondary to suspected macrosomia. Patient's had an ultrasound done approximately 2 weeks ago showed the baby to be 8 lbs. 4 oz. and previous baby was under 7 pounds and she had a prolonged labor discussed options with her and she wished to proceed with section for delivery. Patient does understand the surgery and risks and risks of infection, bleeding, possible injury bowel, bladder, vessels, and/or other organs. All the patient's questions are answered and a written consent is obtained. Operative Findings: This is a vigorous viable male infant Apgars 8 and 8 delivery time was 0836 hours. Infant has spontaneous respirations and good cry. weight was 4000 g. Nuchal cord 1 Description of Procedure: This patient has a Townsend catheter placed to straight drain. She is subsequently taken to the operating room where she sat up and spinal anesthetic is administered without incident. She has abdominal prep and drape. The appropriate timeout is then done. Scalpels taken and a Pfannenstiel skin incision is then made. A second scalpel is taken down the fascia the fascia scored with a knife. Fascial incision extended bilaterally using the Fernando scissors. Fascia is then dissected off the rectus muscles sharply. Rectus muscles are the peritoneum identified and entered sharply. Peritoneal incision extended superior and inferior without difficulty. Bladder blade is then placed. The bladder peritoneum was then taken down sharply off the lower uterine segment. Scalpels and taken low transverse uterine incision is made. Using a hemostat I gently into the uterine cavity bluntly. There is loss of clear fluid. Incision is extended bluntly. 's head is then guided through the incision with fundal pressure delivered. Mouth and nares are bulb suctioned. There is a nuchal cord which is reduced. With more fundal pressure we then have deliver the anterior and posterior shoulder and rest this 's body. This is a vigorous viable male Apgars are 8 and 8 delivery time was 0836 hours. After delivery of the the umbilical cord is doubly clamped and cut the infant is handed off to the nurses in attendance. The placenta is then manually extracted intact. Uterus is externalized and the uterine incision demarcated with Lam clamps. Uterine incision then closed using 0 Vicryl running locked fashion 2 layers. Additional figu re-of-eight stitches placed on the left side for added hemostasis. With excellent hemostasis noted the latter peritoneum was then reapproximated using a 3-0 Vicryl. Excess fluid is removed from the abdomen and pelvis. Uterus, tubes, ovaries appear normal for term gestation. Uterus placed back into the abdomen. The parietal peritoneum was then closed using 0 Vicryl running fashion. The rectus muscles reapproximated in 0 Vicryl interrupted fashion. Fascial incision is then closed using 0 PDS. Fascial incision is intact and hemostatic. Subcutaneous tissues and closed using a 3-0 Vicryl. Skin is and closed using nayeli. All counts are correct 3. There are no complications. is taken special care due to some decreased saturations. Mother is taken to her birthing suite in satisfactory condition.
[2022-09-09] MEDS ORDERED: ZOLPIDEM 5 MG TAB PO PRN (09:34)
[2022-09-09] MEDS ORDERED: diphenhydrAMINE 25 MG CAP PO PRN (09:34)
[2022-09-09] MEDS ORDERED: SIMETHICONE 80 MG CHEWABLE PO PRN (09:34)
[2022-09-09] MEDS ORDERED: ONDANSETRON 4 MG/2 ML VIAL IVP PRN (09:34)
[2022-09-09] MEDS ORDERED: OXYTOCIN 30 UNITS/500 ML NS 30 UNIT in SALINE 1 500ML.BAG IV SCH (09:34)
[2022-09-09] MEDS ORDERED: LANOLIN CREAM 5 GM TUBE TOPICAL PRN (09:34)
[2022-09-09] MEDS ORDERED: diphenhydrAMINE 50 MG/ML 1 ML VIAL IVP PRN (09:34)
[2022-09-09] MEDS ORDERED: METOCLOPRAMIDE 5 MG/ML 2 ML VIAL IVP PRN (09:34)
[2022-09-09] MEDS: LACTATED RINGERS 1,000 ML IV SCH ×2 (09:34→18:47)
[2022-09-09] MEDS ORDERED: NALOXONE 0.4 MG/ML 1 ML VIAL IV PRN (09:34)
[2022-09-09] MEDS: SENNOSIDES-DOCUSATE SODIUM 1 EACH TAB PO SCH ×2 (10:20→19:56)
[2022-09-09] MEDS: ACETAMINOPHEN TAB 500 MG TAB PO SCH ×2 (12:00→18:07)
[2022-09-09] MEDS: IBUPROFEN 600 MG TAB PO SCH ×2 (15:00→21:13)
[2022-09-09] MEDS: KETOROLAC 15 MG/ML 1 ML VIAL IVP SCH ×2 (15:00→21:13)
[2022-09-10] MEDS: ACETAMINOPHEN TAB 500 MG TAB PO SCH ×4 (01:31→20:23)
[2022-09-10] MEDS: LACTATED RINGERS 1,000 ML IV SCH ×2 (01:39→19:47)
[2022-09-10] MEDS: IBUPROFEN 600 MG TAB PO SCH ×4 (04:20→20:23)
[2022-09-10] MEDS: KETOROLAC 15 MG/ML 1 ML VIAL IVP SCH ×2 (04:28→19:47)
--- NOTE | 2022-09-10 06:12 | P.PNOBGPC ---
Subjective - Subjective Patient reports: Reports appetite normal, Reports voiding normally, Reports pain well controlled, Reports ambulating normally : doing well Objective - Vital Signs Latest vital signs: Vital Signs Temp Pulse Resp BP Pulse Ox 09/10/22 04:00 98.0 F 75 16 101/65 97 09/10/22 00:00 97.1 F L 85 16 112/64 98 09/09/22 19:53 97.9 F 84 16 98/63 98 09/09/22 16:15 98.1 F 79 16 122/67 98 09/09/22 12:00 98.0 F 75 16 127/59 98 09/09/22 11:05 97.6 F 76 16 124/64 99 09/09/22 10:35 103 H 16 138/85 100 09/09/22 10:05 96 16 118/62 98 09/09/22 09:50 93 16 113/57 98 09/09/22 09:35 88 16 104/55 98 09/09/22 09:34 98 09/09/22 09:20 93 16 113/65 99 09/09/22 09:05 97.0 F L 108 H 16 112/65 100 09/09/22 06:55 96.8 F L 67 16 119/75 99 Intake and Output 09/09/22 09/09/22 09/10/22 14:59 22:59 06:59 Output Total 1660 550 450 Balance -1660 -550 -450 Output: Urine 800 550 450 Estimated Blood Loss 615 Output, Quantitative 245 Blood Loss Other: Voiding Method Indwelling Catheter Indwelling Catheter - Exam Lungs: bilateral: normal Chest: Normal S1, Normal S2 Extremities: Present: normal Abdomen: Present: normal appearance, soft. Absent: distention, tenderness Incision: Present: normal, dry, intact Uterus: Present: normal, firm - Labs Labs: Abnormal Lab Results - Last 24 Hours (Table) 09/09/22 Range/Units 07:15 RBC 3.73 L (3.80-5.40) m/uL Hct 33.7 L (34.0-46.0) % Assessment and Plan Assessment: Postoperative day #1. Patient is resting without complaints. Vital signs are stable she's afebrile. Uterus is firm nontender and her incision is intact and dry. CBC is pending at time of this dictation. Patient is ambulating and urinating without difficulty. Plan today is to check a CBC, encourage ambulation, allow the patient to shower, and continue routine postoperative care (1) 39 weeks gestation of Current Visit: No Status: Acute Code(s): Z3A.39 - 39 WEEKS GESTATION OF SNOMED Code(s): 73865819 (2) macrosomia Current Visit: No Status: Acute Code(s): UST9450 - SNOMED Code(s): 38502806
[2022-09-10 06:30] LABS: Basophils % (A) 0 %; Eosinophils # (A) 0.1 k/uL (0-0.7); Eosinophils % (A) 1 %; HCT 28.4 % (34.0-46.0); Lymphocytes # (A) 1.3 k/uL (1.0-4.8); Lymphocytes % (A) 13 %; MCH 30.8 pg (25.0-35.0); MCHC 33.6 g/dL (31.0-37.0); MCV 91.7 fL (80.0-100.0); Mean Platelet Volume 9.2; Monocytes # (A) 0.5 k/uL (0-1.0); Monocytes % (A) 5 %; Neutrophils # (A) 7.5 k/uL (1.3-7.7); Neutrophils % (A) 79 %; Platelet Count 198 k/uL (150-450); RBC 3.09 m/uL (3.80-5.40); WBC 9.6 k/uL (3.8-10.6)
[2022-09-10 06:31] LABS: HGB 9.5 gm/dL (11.4-16.0)
[2022-09-10] MEDS: SENNOSIDES-DOCUSATE SODIUM 1 EACH TAB PO SCH ×2 (08:13→20:24)
--- NOTE | 2022-09-10 08:49 | P.PN ---
Progress Note - Text Progress Note Date: 09/10/22 Postoperative day 1 status post section under spinal anesthesia, and i ntrathecal morphine given for postoperative analgesia, patient doing well, there is no anesthesia related complications, Patient had no headache, vital signs stable , Assessment and plan= postop day 1 status post , doing well there is no anesthesia related complication.
[2022-09-11] MEDS: KETOROLAC 15 MG/ML 1 ML VIAL IVP SCH (00:20)
[2022-09-11] MEDS: IBUPROFEN 600 MG TAB PO SCH ×2 (02:55→11:05)
[2022-09-11] MEDS: ACETAMINOPHEN TAB 500 MG TAB PO SCH ×2 (06:27→08:20)
[2022-09-11 06:29] VITALS: RESP 16
--- NOTE | 2022-09-11 06:32 | P.PNOBGPC ---
Subjective - Subjective Patient reports: Reports appetite normal, Reports voiding normally, Reports pain well controlled, Reports ambulating normally : doing well Objective - Vital Signs Latest vital signs: Vital Signs Temp Pulse Resp BP 09/11/22 04:00 98.2 F 69 16 118/68 09/11/22 00:00 98.4 F 98 18 120/69 09/10/22 20:00 98.6 F 97 18 118/77 09/10/22 16:00 98.2 F 75 16 104/67 09/10/22 12:00 98.3 F 89 16 109/68 09/10/22 08:05 97.8 F 90 16 118/75 Intake and Output 09/10/22 09/10/22 09/11/22 14:59 22:59 06:59 Other: # Voids 1 - Exam Lungs: bilateral: normal Chest: Normal S1, Normal S2 Extremities: Present: normal Abdomen: Present: normal appearance, soft. Absent: distention, tenderness Incision: Present: normal, dry, intact Uterus: Present: normal, firm - Labs Labs: Abnormal Lab Results - Last 24 Hours (Table) 09/10/22 Range/Units 06:07 RBC 3.09 L (3.80-5.40) m/uL Hgb 9.5 L D (11.4-16.0) gm/dL Hct 28.4 L (34.0-46.0) % Assessment and Plan Assessment: Post operative day #2. Patient's resting without complaints and wishes to go home. Vital signs are stable she's afebrile. Uterus is firm nontender and her incision is intact and dry. CBC yesterday was normal with an appropriate drop in her hemoglobin. Patient's ambulating, urinating, tolerating regular diet. Plan today is to continue routine postoperative care and discharge home later this morning (1) 39 weeks gestation of Current Visit: No Status: Acute Code(s): Z3A.39 - 39 WEEKS GESTATION OF SNOMED Code(s): 59866336 (2) macrosomia Current Visit: No Status: Acute Code(s): OLW3658 - SNOMED Code(s): 67564183
[2022-09-11] MEDS: SENNOSIDES-DOCUSATE SODIUM 1 EACH TAB PO SCH (08:21)
[2022-09-11 08:29] VITALS: BP 116/74; PULSE 71; TEMP 98.5
== END 2022-09-11 11:27 | disposition home or self-care (01) | DRG 788 ==
LOC: 4FBP 06:40
PROVIDERS: ADMIT Obstetrics & Gynecology; ATTEND Obstetrics & Gynecology
PROC: 10D00Z1 Extraction of Products of Conception, Low, Open Approach (ICD-10-PCS; principal; 2022-09-09 08:30)
DX: O36.63X0 Maternal care for excessive fetal growth, third trimester, not applicable or unspecified (principal); O69.81X0 Labor and delivery complicated by cord around neck, without compression, not applicable or unspecified; Z28.310 Unvaccinated for COVID-19; Z3A.39 39 weeks gestation of pregnancy; Z37.0 Single live birth
CPT/HCPCS: 85025; 86850; 86900; 86901

== ENCOUNTER 2024-02-06 03:50 | Inpatient (IN) | payer OTHER ==
[2024-02-06] MEDS ORDERED: TERBUTALINE 1 MG/ML VIAL SQ PRN (04:06)
[2024-02-06] MEDS ORDERED: OXYTOCIN 10 UNIT/ML 1 ML VIAL IM PRN (04:06)
[2024-02-06] MEDS ORDERED: CARBOPROST TROMETHAMINE 250 MCG/ML 1 ML AMP IM PRN (04:06)
[2024-02-06] MEDS ORDERED: TRANEXAMIC 1,000 MG/100ML-NACL 1,000 MG in EMPTY BAG 1 BAG IV PRN (04:06)
[2024-02-06] MEDS ORDERED: miSOPROStoL 200 MCG TAB PO PRN (04:06)
[2024-02-06 04:41] LABS: Basophils % (A) 0 %; Eosinophils # (A) 0.1 k/uL (0-0.7); Eosinophils % (A) 1 %; HCT 29.7 % (34.0-46.0); HGB 9.8 gm/dL (11.4-16.0); Lymphocytes # (A) 1.7 k/uL (1.0-4.8); Lymphocytes % (A) 17 %; MCH 26.9 pg (25.0-35.0); MCV 81.5 fL (80.0-100.0); Mean Platelet Volume 9.4; Monocytes # (A) 0.6 k/uL (0-1.0); Monocytes % (A) 6 %; Neutrophils # (A) 7.4 k/uL (1.3-7.7); Neutrophils % (A) 74 %; Platelet Count 238 k/uL (150-450); RBC 3.65 m/uL (3.80-5.40); RDW 14.8 % (11.5-15.5)
[2024-02-06] MEDS: LACTATED RINGERS 1,000 ML IV SCH (05:00)
[2024-02-06] MEDS ORDERED: ROPIVACAINE 5 MG/ML 30 ML VIAL ONE (08:33)
[2024-02-06] MEDS ORDERED: fentaNYL (PF) 50 MCG/ML 5 ML AMP ONE (08:33)
[2024-02-06] MEDS ORDERED: SODIUM CHLORIDE 0.9% 250 ML BAG ONE (08:33)
--- NOTE | 2024-02-06 11:24 | P.HPOB ---
History of Present Illness H&P Date: 02/06/24 Chief Complaint: IUP at 40-3/7 weeks, labor This is a 33-year-old 4 para 2011 at 40-3/7 weeks that presents to labor and delivery with complaints of spontaneous rupture membranes. Patient states she noted rupture of membranes around 130, clear in nature. Patient was noted contractions irregular in nature upon presentation to labor and delivery. Patient does have a prior history of a vaginal delivery, section with her second baby secondary to macrosomia, current she desires trial of labor after section. Patient has been receiving routine care which has been essentially uncomplicated. On labs this patient is a blood type of a positive, rubella status immune, hepatitis B surface engine negative, HIV negative, RPR is nonreactive, grew beta strep culture is negative. Review of Systems Constitutional: Denies chills, Denies fatigue, Denies fever Ears, nose, mouth and throat: Denies headache Cardiovascular: Reports leg edema Respiratory: Denies dyspnea Gastrointestinal: Denies constipation, Denies diarrhea, Denies nausea, Denies vomiting Genitourinary: Reports Past Medical History Past Medical History: No Reported History Additional Past Medical History / Comment(s): miscarriage requiring D&C at this time History of Any Multi-Drug Resistant Organisms: None Reported Past Surgical History: No Surgical Hx Reported Additional Past Surgical History / Comment(s): D&C, c/section Past Anesthesia/Blood Transfusion Reactions: No Reported Reaction Additional Past Anesthesia/Blood Transfusion Reaction / Comment(s): no hx blood transfusion Past Psychological History: No Psychological Hx Reported Smoking Status: Never smoker Past Alcohol Use History: Occasional Past Drug Use History: None Reported - Past Family History Father Family Medical History: No Reported History Mother Family Medical History: Diabetes Mellitus Medications and Allergies Home Medications Medication Instructions Recorded Confirmed Type Vit No.179/Iron/Folic 1 each PO DAILY 09/08/22 02/06/24 History [ Tablet] Allergies Allergy/AdvReac Type Severity Reaction Status Date / Time No Known Allergies Allergy Verified 02/06/24 03:54 Exam Osteopathic Statement: *. No significant issues noted on an osteopathic structural exam other than those noted in the History and Physical/Consult. Vital Signs Temp Pulse Resp BP Pulse Ox 02/06/24 03:54 97.6 F 94 16 120/76 99 Intake and Output 02/05/24 02/06/24 02/06/24 23:59 06:59 14:59 Other: # Voids Weight Targeted physical exam is performed this date General Is well-nourished well- developed female comfortable with epidural, epidural was placed prior to my arrival, breathing appears nonlabored, abdomen is gravid and appropriate for gestational age, on cervical exam she is 6/90/-3 station amniotomy is performed as amniotic sac is preformed and thin meconium stained fluid is appreciated, heart tones are noted to be category 2 with early decelerations appreciated, ariadne every 4 minutes. Results Result Diagrams: 02/06/24 04:28 Abnormal Lab Results - Last 24 Hours (Table) 02/06/24 Range/Units 04:28 RBC 3.65 L (3.80-5.40) m/uL Hgb 9.8 L (11.4-16.0) gm/dL Hct 29.7 L (34.0-46.0) % Assessment and Plan (1) Post-dates Current Visit: Yes Status: Acute Code(s): O48.0 - POST-TERM SNOMED Code(s): 52481042 (2) Spontaneous rupture of membranes Current Visit: No Status: Acute Code(s): BOK1994 - SNOMED Code(s): 330057060 Plan: 33-year-old -0-1-2 at 40-3/7 weeks that presents with complaints of spontaneous rupture of membranes around 1:30 AM. Patient is admitted to labor and delivery. Patient made progress through the night, amniotomy is performed and thin meconium stained fluid was performed this morning. Patient requested epidural which was placed without difficulty by the anesthesia department. Will monitor closely, risks of trial of labor after are reviewed with patient and her .
--- NOTE | 2024-02-06 12:17 | P.MSEPDOC ---
Presenting Problems - Arrival Data Date of Arrival on Unit: 02/06/24 Time of Arrival on Unit: 04:15 Mode of Transport: Ambulatory - Complaint OB-Reason for Admission/Chief Complaint: Rule Out SROM Comment: pt of Dr. Smith 40 weeks 3 days presents with SROM for clear fluid at 0130. Medical History - Information : 4 Para: 2 Term: 2 : 0 Abortions: Spontaneous or Elective: 1 Number of Living Children: 2 - Gestational Age Gestational Age by CONCEPCION (wks/days): 40 Weeks and 3 Days Review of Systems - Review of Systems Constitutional: No problems Breast: No problems ENT: No problems Cardiovascular: No problems Respiratory: No problems Gastrointestinal: No problems Genitourinary: No problems Musculoskeletal: No problems Neurological: No problems Skin: No problems Vital Signs - Temperature Temperature: 97.6 F Temperature Source: Temporal Artery Scan - Pulse Pulse Oximetery Pulse Rate: 94 Pulse Assessment Method: Pulse Oximetry - Respirations Respiratory Rate: 16 Oxygen Delivery Method: Room Air O2 Sat by Pulse Oximetry: 99 - Blood Pressure Right Arm Blood Pressure: 120/76 Blood Pressure Mean: 90 Blood Pressure Source: Automatic Cuff Medical Screen Scoring - Cervical Exam Dilation (cm): 3.5 Effacement (%): 80 Station: -2 Membranes: Ruptured - Uterine Contractions Intensity: Mild Resting: Soft to palpation - Assessment - Baby A Baseline FHR: 125 Heart Rate - NICHD Category: Category I (Normal) NST: Reactive Physician Notification - Physician Notified Physician Notified Date: 02/06/24 Physician Notified Time: 04:10 Physician: Jennifer Vera New Order Received: Yes - Notification Comment Comment: Dr. Vera called, pt of Dr. Smith 40 weeks 3 days presents with SROM for clear fluid at 0130. Amnisure positive. Pt is scheduled IOL on 02/06 tomorrow. P c/s with last delivery for macrosomia in '. NST reactive cat 1 tones, cx irregular GBS - Pt may want epidural when she becomes more uncomfortable. Order recieved to admit pt for labor and start pitocin in few hrs if cx still irregular. RN only to increase pit by 1and not [id number] Maternal Triage Index - Maternal Triage Index Presenting for scheduled procedure w/no complaint: No - Stat/Priority 1 Stat Priority 1: No - Urgent/Priority 2 Urgent Priority 2: No - Prompt/Priority 3 Prompt Priority 3: Yes Criteria Met for Priority 3: pt of Dr. Smith 40 weeks 3 days presents with SROM for clear fluid at 0130. Amnisure positive. Disposition - Disposition OB Disposition: Admit I agree with the RN Medical Screening Exam: Yes Case reviewed; plan agreed upon as documented in EMR&OBIX.: Yes Diagnosis: ENCOUNTER FOR FULL-TERM UNCOMPLICATED DELIVERY
[2024-02-06] MEDS: OXYTOCIN 30 UNITS/500 ML NS 30 UNIT in SALINE 1 500ML.BAG IV SCH (15:00)
[2024-02-06] MEDS: METHYLERGONOVINE 0.2 MG/ML 1 ML AMP IM PRN (15:06)
[2024-02-06] MEDS: miSOPROStoL 200 MCG TAB RECTAL PRN (15:15)
[2024-02-06] MEDS ORDERED: LANOLIN CREAM 1 GM TUBE TOPICAL PRN (15:25)
[2024-02-06] MEDS ORDERED: BENZOCAINE/MENTHOL SPRAY 1 GM/SPRAY AEROSOL TOPICAL PRN (15:25)
[2024-02-06] MEDS ORDERED: ZOLPIDEM 5 MG TAB PO PRN (15:25)
[2024-02-06] MEDS ORDERED: diphenhydrAMINE 25 MG CAP PO PRN (15:25)
[2024-02-06] MEDS ORDERED: HYDROCORTISONE 2.5% RECTAL CREAM 30 GM TUBE RECTAL PRN (15:25)
[2024-02-06] MEDS ORDERED: diphenhydrAMINE 50 MG/ML 1 ML VIAL IVP PRN ×2 (15:25)
[2024-02-06] MEDS ORDERED: diphenhydrAMINE 50 MG CAP PO PRN (15:25)
[2024-02-06] MEDS ORDERED: SIMETHICONE 80 MG CHEWABLE PO PRN (15:25)
--- NOTE | 2024-02-06 15:33 | P.PROBDLV ---
Vaginal Delivery Note - . Vaginal Delivery Note: This is a 33-year-old 4 para 2-0-1-2 that presented to labor and delivery at 40-3/7 weeks with complaints of spontaneous rupture of membranes around 130 this morning. Patient stated fluid was clear in nature. Patient has been receiving routine care which has been essentially uncomplicated. Patient has a prior history of a vaginal delivery with her first , section for her second secondary to macrosomia and desires trial of labor after with his current . Patient was admitted to labor and delivery and was making cervical change throughout the morning. Patient underwent amniotomy and meconium stained fluid was appreciated. Patient did request an epidural during labor for pain control. Patient made good progress toward complete dilation. Once completely dilated patient began pushing and had a successful vaginal after of a viable female infant at 1458, weight of 8 pounds 6 ounces, Apgars of 7 and 9 at 1 and 5 minutes respectively. Mild shoulder dystocia was appreciated reduced after Lizzette. After 2-minute delay the umbilical cord was doubly clamped and cut placenta was delivered spontaneously intact with a three-vessel cord being noted. Spontaneous cry was appreciated. On inspection the patient's vaginal vault a secondary midline laceration was appreciated. This was repaired in the usual fashion with 3-0 Rapide after instillation of lidocaine. Hemostasis was noted after repair. Uterus was noted to be quite boggy after delivery of the placenta bladder was drained for approximately 300 cc of clear yellow urine, Methergine was given and uterus firmed, uterus once again became boggy and Cytotec 1000 mcg was placed rectally. Uterus was then noted to be firm with appropriate lochia appreciated. EBL 500 cc All counts were noted correct x 2 at the end of the delivery. Patient and infant tolerated delivery well and are resting comfortably.
[2024-02-06] MEDS: IBUPROFEN 800 MG TAB PO SCH (15:37)
[2024-02-06 16:08] LABS: Basophils % (A) 0 %; Eosinophils % (A) 0 %; HCT 28.8 % (34.0-46.0); HGB 9.2 gm/dL (11.4-16.0); Hypochromasia Slight; Lymphocytes % (A) 8 %; MCH 26.8 pg (25.0-35.0); MCV 83.9 fL (80.0-100.0); Mean Platelet Volume 9.5; Monocytes # (A) 0.4 k/uL (0-1.0); Monocytes % (A) 4 %; Neutrophils # (A) 10.1 k/uL (1.3-7.7); Neutrophils % (A) 87 %; Platelet Count 190 k/uL (150-450); RBC 3.43 m/uL (3.80-5.40); RDW 14.6 % (11.5-15.5); WBC 11.6 k/uL (3.8-10.6)
[2024-02-06] MEDS: LIDOCAINE 0.5% (PF) 5 MG/ML (50 ML SDV) SQ PRN (18:08)
[2024-02-06] MEDS: ACETAMINOPHEN TAB 500 MG TAB PO SCH (19:55)
[2024-02-06] MEDS: SENNOSIDES-DOCUSATE SODIUM 1 EACH TAB PO SCH (19:55)
[2024-02-07 04:30] LABS: Basophils % (A) 0 %; Eosinophils # (A) 0.1 k/uL (0-0.7); Eosinophils % (A) 1 %; HCT 22.3 % (34.0-46.0); Lymphocytes # (A) 1.9 k/uL (1.0-4.8); Lymphocytes % (A) 15 %; MCHC 32.4 g/dL (31.0-37.0); MCV 83.2 fL (80.0-100.0); Mean Platelet Volume 9.3; Monocytes # (A) 0.7 k/uL (0-1.0); Monocytes % (A) 6 %; Neutrophils # (A) 9.3 k/uL (1.3-7.7); Neutrophils % (A) 77 %; Platelet Count 180 k/uL (150-450); RBC 2.68 m/uL (3.80-5.40); RDW 15.2 % (11.5-15.5); WBC 12.2 k/uL (3.8-10.6)
[2024-02-07 04:47] LABS: HGB 7.2 gm/dL (11.4-16.0)
[2024-02-07 08:45] VITALS: BP 105/68; PULSE 92; RESP 14; TEMP 98
--- NOTE | 2024-02-07 08:49 | P.DS ---
Providers Date of admission: 02/06/24 04:19 Expected date of discharge: 02/07/24 Attending physician: Jennifer Vera Primary care physician: Stated None Hospital Course: Ms. Belle is a 33 year old PPD#1 s/p complicated by hemorrhage of approximately 500 mL. She did receive methergine and misoprostol in the immediate course for uterine atony. Her extended course has been uncomplicated. Her Hgb is 7.2 this morning however the patient is asymptomatic, ambulating without difficulty, and vital signs are stable. She was counseled about daily oral ferrous sulfate versus replacement of IV for an iron transfusion and has elected for oral iron. The patient is doing well this morning and had no acute events overnight. She has no complaints this morning. She reports minimal lochia, passing flatus, voiding without difficulty, and eating/drinking without nausea or vomiting. Infant doing well at bedside, breast feeding well. She denies chest pain, shortness of breathing, fevers, or chills overnight. She denies pain or swelling in the legs. restrictions are reviewed with the patient including pelvic rest for 6 weeks. The patient is encouraged to call the office if she experiences any heavy bleeding, foul- smelling discharge, breast complaints, or any if she has any other concerns. She will follow up in the office in 6 weeks for postoperative exam. All questions are answered. Assessment: 33 year old PPD#1 s/p with hemorrhage Patient Condition at Discharge: Good Plan - Discharge Summary New Discharge Prescriptions: New Docusate [Colace] 100 mg PO BID PRN #60 capsule PRN Reason: Constipation Ferrous Sulfate [Iron (65 MG Elemental)] 325 mg PO DAILY #30 tab No Action Vit No.179/Iron/Folic [ Tablet] 1 each PO DAILY Discharge Medication List Vit No.179/Iron/Folic [ Tablet] 1 each PO DAILY 09/08/22 [History] Docusate [Colace] 100 mg PO BID PRN #60 capsule 02/07/24 [Rx] Ferrous Sulfate [Iron (65 MG Elemental)] 325 mg PO DAILY #30 tab 02/07/24 [Rx] Follow up Appointment(s)/Referral(s): Domitila Smith MD [STAFF PHYSICIAN] - 1 Week Activity/Diet/Wound Care/Special Instructions: Instructions 1. Do not begin any exercise program for 3 weeks. 2. Do not resume sexual relations for 6 weeks or longer if uncomfortable. 3. You may take tub baths or showers at any time. 4. You may use tampons if desired after 6 weeks. 5. Keep any areas repaired with stitches clean and dry. 6. If you are not nursing, wear a good fitting, supportive bra during the day and limit fluid intake for at least 1 week to prevent breast engorgement. 7. Call the office, , within the next week to make appointment for your 6 week checkup if it has not already been made. 8. Report any of the following occurrences to the doctor promptly: a. Heavy, excessive bleeding b. Chills, fever c. Burning or frequency of urination d. Pain or redness and breasts if nursing e. Increasing pain or swelling of vulva (stitches). In addition to the above instructions, the following additional should be followed: 1. No heavy lifting or straining (exercising) until after 6 week checkup. 2. Keep abdominal incision clean and dry: You may wear a dressing if more comfortable. 3. Make office appointment for 2 weeks after delivery date. Discharge Disposition: HOME SELF-CARE
[2024-02-07] MEDS ORDERED: PRENATAL VIT-IRON-FOLIC ACID 1 EACH TABLET PO SCH (09:00)
== END 2024-02-07 15:30 | disposition home or self-care (01) | DRG 806 ==
LOC: FBPOP 03:50 → 4FBP 04:19
PROVIDERS: ADMIT Obstetrics & Gynecology Obstetrics; ATTEND Obstetrics & Gynecology Obstetrics
PROC: 10E0XZZ Delivery of Products of Conception, External Approach (ICD-10-PCS; principal; 2024-02-06)
PROC: 0KQM0ZZ Repair Perineum Muscle, Open Approach (ICD-10-PCS; 2024-02-06)
DX: O66.0 Obstructed labor due to shoulder dystocia (principal); O71.4 Obstetric high vaginal laceration alone; Z37.0 Single live birth; O72.1 Other immediate postpartum hemorrhage; O34.219 Maternal care for unspecified type scar from previous cesarean delivery; N85.8 Other specified noninflammatory disorders of uterus; O77.0 Labor and delivery complicated by meconium in amniotic fluid; Z3A.40 40 weeks gestation of pregnancy; Z83.3 Family history of diabetes mellitus
CPT/HCPCS: 59025; 84112; 85025; 86850; 86900; 86901; 88307; 99213